=== PATIENT | female | born 1960 | race Caucasian/White ===

== ENCOUNTER 2016-09-27 09:25 | Emergency (ER) | payer OTHER ==
[~2016-09-27] VITALS: Ht 167.6 cm; Wt 70.7 kg
[2016-09-27 09:28] VITALS: BP 145/81
[2016-09-27 10:01] LABS: HEMOGLOBIN 13.1 g/dL (11.7-16.4)
[2016-09-27 10:12] LABS: BLOOD UREA NITROGEN 19 mg/dL (7-18)
== END 2016-09-27 10:56 | disposition home or self-care (01) ==
LOC: ED 10:38
DX: M10.031 Idiopathic gout, right wrist (principal); M10.041 Idiopathic gout, right hand
CPT/HCPCS: 36415; 80048; 82040; 84550; 85025

== ENCOUNTER 2016-11-10 11:50 | Emergency (ER) | payer OTHER ==
[~2016-11-10] VITALS: Ht 167.6 cm; Wt 69.2 kg
[2016-11-10 11:53] VITALS: BP 122/74
[2016-11-10] MEDS ORDERED: ALBUTEROL/IPRATROPIUM 2.5MG/0.5MG, 3 ML NPPB ONE (12:30)
[2016-11-10] MEDS ORDERED: ALBUTEROL/IPRATROPIUM 2.5MG/0.5MG, 3 ML ONE (13:08)
== END 2016-11-10 13:36 | disposition home or self-care (01) ==
LOC: ED 12:21
DX: J20.9 Acute bronchitis, unspecified (principal); B96.89 Other specified bacterial agents as the cause of diseases classified elsewhere
CPT/HCPCS: 71020; 94640; 99284; J7620

== ENCOUNTER 2016-11-29 08:28 | Emergency (ER) | payer OTHER ==
[~2016-11-29] VITALS: Ht 165.1 cm; Wt 69.5 kg
[2016-11-29 08:30] VITALS: BP 132/80
== END 2016-11-29 09:37 | disposition home or self-care (01) ==
LOC: ED 09:13
DX: J20.8 Acute bronchitis due to other specified organisms (principal)
CPT/HCPCS: 71020; 99284

== ENCOUNTER 2017-04-10 09:28 | Emergency (ER) | payer OTHER ==
[~2017-04-10] VITALS: Ht 167.6 cm; Wt 67.3 kg
[2017-04-10 09:36] VITALS: BP 132/74
[2017-04-10] MEDS ORDERED: KETOROLAC 30 MG/1 ML IM ONE (10:00)
[2017-04-10] MEDS ORDERED: KETOROLAC 30 MG/1 ML ONE (10:03)
== END 2017-04-10 11:25 | disposition home or self-care (01) ==
LOC: ED 09:44
DX: S63.522A Sprain of radiocarpal joint of left wrist, initial encounter (principal); W01.0XXA Fall on same level from slipping, tripping and stumbling without subsequent striking against object, initial encounter; Y93.31 Activity, mountain climbing, rock climbing and wall climbing; Y92.89 Other specified places as the place of occurrence of the external cause; Y99.8 Other external cause status
CPT/HCPCS: 29260; 73090; 73110; 96372; 99284; J1885

== ENCOUNTER 2017-10-09 13:49 | Emergency (ER) | payer OTHER ==
[~2017-10-09] VITALS: Ht 165.1 cm; Wt 70.7 kg
[2017-10-09 13:51] VITALS: BP 119/66
== END 2017-10-09 14:53 | disposition home or self-care (01) ==
LOC: ED 14:30
DX: L42 Pityriasis rosea (principal)
CPT/HCPCS: 99283

== ENCOUNTER 2018-09-06 09:11 | Inpatient (IN) | payer OTHER ==
[~2018-09-06] VITALS: Ht 165.1 cm; Wt 67.0 kg
[~2018-09-06 09:11] MED LIST: ALBU90AE INH
[2018-09-06] MEDS ORDERED: LACTATED RINGERS 1,000 ML IV SCH (09:57)
[2018-09-06] MEDS ORDERED: NO MEDS PER PT (09:58)
[2018-09-06] MEDS ORDERED: MIDAZOLAM 1 MG/ML, 2ML ONE (10:50)
[2018-09-06] MEDS ORDERED: FENTANYL PF 250 MCG/5ML ONE (10:50)
[2018-09-06] MEDS ORDERED: BUPIVACAINE/PF-EPI 0.5% 1:200K ONE (11:32)
[2018-09-06] MEDS ORDERED: KETOROLAC 30 MG/1 ML ONE (11:39)
[2018-09-06] MEDS ORDERED: DEXAMETHASONE 4 MG/ML, 1ML ONE (11:39)
[2018-09-06] MEDS ORDERED: ROCURONIUM 10MG/ML,5ML ONE (11:39)
[2018-09-06] MEDS ORDERED: ONDANSETRON 2MG/ML, 2ML ONE (11:39)
[2018-09-06] MEDS ORDERED: CEFAZOLIN 1,000 MG ONE (11:39)
[2018-09-06] MEDS ORDERED: PROPOFOL 10 MG/ML, 20ML ONE (11:39)
[2018-09-06] MEDS ORDERED: SUGAMMADEX 200 MG/2 ML IVPush ONE (12:27)
[2018-09-06] MEDS ORDERED: MEPERIDINE/PF 25MG/0.5ML IVPush PRN (12:30)
[2018-09-06] MEDS ORDERED: ACETAMINOPHEN 325 MG TABLET PO PRN (12:30)
[2018-09-06] MEDS ORDERED: hydrALAzine 20 MG/ML, 1ML IV PRN (12:30)
[2018-09-06] MEDS ORDERED: ALBUTEROL SULFATE 2.5 MG/3 ML NPPB PRN (12:30)
[2018-09-06] MEDS ORDERED: FENTANYL PF 100 MCG/2ML IV PRN (12:30)
[2018-09-06] MEDS ORDERED: DIAZEPAM 5 MG/ML, 2ML IVPush PRN (12:30)
[2018-09-06] MEDS ORDERED: LABETALOL 5MG/ML, 20ML IV PRN (12:30)
[2018-09-06] MEDS ORDERED: PROMETHAZINE 25 MG/ML, 1ML IV PRN (12:30)
[2018-09-06] MEDS ORDERED: HYDROmorphone PCA 30 MG/30 ML IV PRN ×2 (13:00→16:00)
[2018-09-06] MEDS ORDERED: HYDROmorphone 1 MG/ML, 1ML ONE ×3 (13:22→14:17)
[2018-09-06] MEDS: HYDROmorphone 2 MG/ML, 1ML IVPush PRN ×6 (13:25→14:49)
[2018-09-06] MEDS ORDERED: ONDANSETRON 2MG/ML, 2ML IV PRN (16:00)
[2018-09-06] MEDS: IBUPROFEN 800 MG TABLET PO SCH (17:00)
[2018-09-06] MEDS: ACETAMINOPHEN 500 MG TABLET PO SCH ×2 (17:06→21:28)
[2018-09-06] MEDS: POTASSIUM CHLORIDE 20 MEQ in D5%-0.45% NACL 1,000 ML IV SCH (17:06)
[2018-09-06 19:32] VITALS: BP 151/75
[2018-09-06] MEDS: SODIUM CHLORIDE FLUSH 10ML SYR IVF SCH (20:09)
[2018-09-06] MEDS: CEFAZOLIN PMX 2GM/50ML 50 ML IVPB SCH (20:09)
[2018-09-06 23:38] VITALS: BP 147/92
[2018-09-07 03:00] VITALS: BP 113/67
[2018-09-07] MEDS: ACETAMINOPHEN 500 MG TABLET PO SCH ×3 (04:53→12:05)
[2018-09-07] MEDS: CEFAZOLIN PMX 2GM/50ML 50 ML IVPB SCH (04:53)
[2018-09-07] MEDS: POTASSIUM CHLORIDE 20 MEQ in D5%-0.45% NACL 1,000 ML IV SCH (05:49)
[2018-09-07 07:07] VITALS: BP 128/66
[2018-09-07] MEDS ORDERED: ENOXAPARIN 40 MG/0.4 ML SQ SCH (08:00)
[2018-09-07] MEDS: IBUPROFEN 800 MG TABLET PO SCH ×2 (08:00→11:22)
[2018-09-07] MEDS: SODIUM CHLORIDE FLUSH 10ML SYR IVF SCH (08:24)
[2018-09-07 12:22] VITALS: BP 119/64
[2018-09-07] MEDS ORDERED: OXYC5TAB3 PO (13:32)
[2018-09-07] MEDS ORDERED: ACET-1600 PO (13:33)
[2018-09-07] MEDS ORDERED: IBUP-1223 PO (13:34)
[2018-09-07] MEDS ORDERED: OXYcodone IR 5MG TABLET PO ONE (14:00)
[2018-09-07] MEDS ORDERED: OXYcodone IR 5MG TABLET ONE (14:11)
== END 2018-09-07 13:53 | disposition home or self-care (01) | DRG 165 ==
LOC: ORIP 09:11 → 4NOR 15:09 → DCLOUNGE 09-07 13:38
PROVIDERS: ADMIT Surgery; ATTEND Surgery
PROC: 0BBD4ZZ Excision of Right Middle Lung Lobe, Percutaneous Endoscopic Approach (ICD-10-PCS; principal; 2018-09-06 11:30)
DX: R91.8 Other nonspecific abnormal finding of lung field (principal); E11.9 Type 2 diabetes mellitus without complications; E04.1 Nontoxic single thyroid nodule; J45.30 Mild persistent asthma, uncomplicated; E78.00 Pure hypercholesterolemia, unspecified; Z88.6 Allergy status to analgesic agent
CPT/HCPCS: 36415; 71045; 86850; 86870; 86900; 86902; 86922; 86923; 87015; 87070; 87075; 87102; 87116; 87176; 87205; 87206; 88307; 88341; 88342; 88360; C1729; G0378; J0690; J1100; J1170; J1650; J1885; J2250; J2405; J2704; J3010; J3480; J7120